=== PATIENT | male | born 1955 | race Caucasian/White ===

== ENCOUNTER 2019-08-09 16:34 | Emergency (ER) | payer OTHER ==
[2019-08-09] MEDS ORDERED: TETANUS & DIPHTHERIA TOX,ADULT 0.5 ML VIAL ONE (16:59)
--- NOTE | 2019-08-09 17:35 | RAD REPORT ---
EXAM DESCRIPTION: RAD - Hand Left 3 View - 08/09/2019 5:28 pm CLINICAL HISTORY: laceration Pain and laceration COMPARISON: No comparisons FINDINGS: Evidence of laceration is seen in the dorsal soft tissues of the hand and the thenar regio n. Mild air is seen in the subcutaneous tissues. No foreign body evident. Fracture is not seen.
[2019-08-09] MEDS ORDERED: CEFAZOLIN/SWI 1gm 1 GM/10 ML SYR ONE (18:06)
[2019-08-09] MEDS ORDERED: BUPIVACAINE 0.5% PF 10 ML VIAL ONE (18:19)
[2019-08-09] MEDS ORDERED: LIDOCAINE 1% MPF 5 ML VIAL ONE (18:19)
--- NOTE | 2019-08-09 19:18 | EDPHYS ---
Physician Documentation [facility] Name: Conner Petersen Age: 64 yrs Sex: Male : 1955 Arrival Date: 08/09/2019 Time: 16:37 Bed 28 Private MD: ED Physician Viktor Lainez HPI: 08/09 16:47 This 64 yrs old Male presents to ER via Ambulatory with complaints of pm1 Laceration To Hand. 16:47 The patient has a laceration related to: Pressure washing with water his outside pm1 furniture occurred at home, and tank washer. The laceration(s) is(are) located on the dorsum of left hand. Onset: The symptoms/episode began/occurred just prior to arrival. Associated signs and symptoms: Pertinent negatives: numbness distal to injury, suspected foreign body. The patient has not experienced similar symptoms in the past. The patient has not recently seen a physician. Patient was pressure washing his outdoor furniture. Holding the handle with his right hand and then he accidentally pressure washed his left hand. Was not wearing a glove. No solution or soap present in water. Historical: - Allergies: 16:42 No Known Allergies; hb - Home Meds: 16:42 None [Active]; hb - PMHx: 16:42 None; hb - PSHx: 16:42 None; hb - Immunization history:: Last tetanus immunization: > 10 years ago. - Coronavirus screen:: The patient has NOT traveled to [place], [place], or [place] in the past 14 days. The patient has NOT had contact with known/suspected case of Coronavirus? Proceed with normal triage procedures. - Social history:: Smoking status: Patient denies any tobacco usage or history of. - Ebola Screening: : No symptoms or risks identified at this time. ROS: 16:47 Constitutional: Negative for fever, chills, and weight loss, Cardiovascular: Negative pm1 for chest pain, palpitations, and edema, Respiratory: Negative for shortness of breath, cough, wheezing, and pleuritic chest pain, Abdomen/GI: Negative for abdominal pain, nausea, vomiting, diarrhea, and constipation. 16:47 Neuro: Negative for headache, weakness, numbness, tingling, and seizure. 16:47 MS/extremity: Positive for injury or acute deformity, of the dorsum of left hand. 16:47 Skin: Positive for laceration(s), of the dorsum of left hand. Exam: 16:47 Constitutional: This is a well developed, well nourished patient who is awake, alert, pm1 and in no acute distress. Head/Face: Normocephalic, atraumatic. Chest/axilla: Normal chest wall appearance and motion. Nontender with no deformity. No lesions are appreciated. Cardiovascular: Regular rate and rhythm with a normal S1 and S2. No gallops, murmurs, or rubs. Normal PMI, no JVD. No pulse deficits. Respiratory: Lungs have equal breath sounds bilaterally, clear to auscultation and percussion. No rales, rhonchi or wheezes noted. No increased work of breathing, no retractions or nasal flaring. Back: No spinal tenderness. No costovertebral tenderness. Full range of motion. 16:47 MS/ Extremity: Pulses equal, no cyanosis. Neurovascular intact. Full, normal range of motion. 16:47 Skin: Appearance: normal except for affected area, injury, laceration(s), the wound is approximately 2 cm(s), with a depth of 0.5 cm(s), of the dorsum of left hand. 16:47 Neuro: Orientation: is normal, Motor: is normal, moves all fours, Gait: is steady, at a normal pace, without difficulty. Vital Signs: 16:41 BP 159 / 87; Pulse 55; Resp 16; Temp 97.8; Pulse Ox 98% on R/A; Weight 72.57 kg; Height hb 5 ft. 8 in. (172.72 cm); Pain 5/10; 18:00 BP 136 / 91; Pulse 49; Resp 18; Pulse Ox 98% on R/A; wh 19:00 BP 129 / 78; Pulse 49; Resp 18; Pulse Ox 98% ; wh 16:41 Body Mass Index 24.33 (72.57 kg, 172.72 cm) hb Laceration: 19:12 Wound Repair of 2cm ( 0.8in ) subcutaneous laceration to dorsum of left hand over 2nd pm1 metacarpal. Irregularly shaped.. Distal neuro/vascular/tendon intact. Anesthesia: Local anesthetic administered with 4 mls of Lido/Marcaine. Wound prep: Extensive cleansing with betadine with hibiclenz by me, Wound irrigation with saline by me, Wound explored extensively, Copious irrigation. Skin closed with 5 4-0 Prolene using simple sutures and sterile technique. Dressed with Neosporin, 4x4's, Kerlix. Patient tolerated well. MDM: 16:43 Patient medically screened. pm1 17:34 Physician consultation: Quintin Crabtree MD was called at 17:34, was contacted at 17:34, pm1 regarding consult, patient's condition, recommends transfer for OR washout. Discussed his recommendation to Dr. Lainez. Dr. Lainez disagrees with recommendation and would like me to consult with Dr. Weeks. 17:48 Physician consultation: Trudy Weeks was called at 17:45, was contacted at 17:45, pm1 regarding consult, patient's condition, Viewed picture of laceration and 3 view x-ray. Wants me suture the laceration, give the patient Ancef here in the ER, Prescribe Keflex TID for 3 days, do not splint hand to allow movement of hand to prevent stiffening, and follow up in the [place] office on Sunday . 17:57 Data reviewed: vital signs. Data interpreted: Pulse oximetry: on room air is 98 %. pm1 Interpretation: normal. Counseling: I had a detailed discussion with the patient and/or guardian regarding: the historical points, exam findings, and any diagnostic results supporting the discharge/admit diagnosis, radiology results, the need for outpatient follow up, for definitive care, a hand specialist, With Dr. Weeks on Sunday. 08/09 16:46 Order name: Hand Left 3 View XRAY; Complete Time: 17:57 pm1 08/09 17:59 Order name: Prolene, Sutures; Complete Time: 18:14 pm1 08/09 17:59 Order name: Dressing - Wound; Complete Time: 18:14 pm1 08/09 17:59 Order name: Gloves, Sterile; Complete Time: 18:14 pm1 08/09 17:59 Order name: Setup Suture Tray; Complete Time: 18:14 pm1 Administered Medications: 17:05 Not Given (Pt have updated DPT): Tetanus-Diphtheria Toxoid Adult 0.5 ml IM once 18:14 Drug: Ancef 1 grams Route: IVPB; Site: right antecubital; 19:36 Follow up: Response: No adverse reaction; IV Status: Completed infusion 18:41 Drug: Bupivacaine (0.5 %) 10 ml {Note: Administered by Maria L TYPE COPYIST.} Volume: 10 ml; Route: Infiltration; 18:42 Drug: Lidocaine (1 %) 5 ml {Note: Administered by Maria L TYPE COPYIST.} Volume: 5 ml; Route: wh Infiltration; 19:27 Drug: traMADol 50 mg Route: PO; 19:35 Follow up: Response: No adverse reaction; Pain is decreased; RASS: Alert and Calm (0) Disposition: 08/09/19 19:17 Discharged to Home. Impression: Laceration without foreign body of left hand. - Condition is Stable. - Discharge Instructions: Laceration Care, Adult. - Prescriptions for Keflex 500 mg Oral Capsule - take 1 capsule by ORAL route every 8 hours for 3 days; 9 capsule. Tramadol 50 mg Oral Tablet - take 1 tablet by ORAL route every 8 hours As needed as needed; 12 tablet. - Medication Reconciliation Form, Thank You Letter, Antibiotic Education, Prescription Opioid Use form. - Follow up: Emergency Department; When: As needed; Reason: Worsening of condition. Follow up: Eulalio Goel MD; When: See Dr. Trudy Weeks MD on Sunday; Reason: Wound Recheck, Recheck today's complaints, Continuance of care, Re-evaluation by your physician. - Problem is new. - Symptoms have improved. Addendum: 08/11/2019 07:29 Co-signature as Attending Physician, Viktor Lainez MD I agree with the assessment and c gar plan of care. Signatures: Dispatcher [employer] [facility] Viktor Lainez MD MD cha Marinas, Patrick, NP TYPE COPYIST pm1 Caroline Moncada RN RN Michelle Yusuf Corrections: (The following items were deleted from the chart) 08/09 19:36 19:17 08/09/2019 19:17 Discharged to Home. Impression: Laceration without foreign body wh of left hand. Condition is Stable. Prescriptions for Keflex 500 mg Oral Capsule - take 1 capsule by ORAL route every 8 hours for 3 days; 9 capsule, Tramadol 50 mg Oral Tablet - take 1 tablet by ORAL route every 8 hours As needed as needed; 12 tablet. and Forms are Medication Reconciliation Form, Thank You Letter, Antibiotic Education, Prescription Opioid Use. Follow up: Emergency Department; When: As needed; Reason: Worsening of condition. Follow up: Eulalio Goel; When: See Dr. Trudy Weeks MD on Sunday; Reason: Wound Recheck, Recheck today's complaints, Continuance of care, Re-evaluation by your physician. Problem is new. Symptoms have improved. pm1
--- NOTE | 2019-08-09 19:18 | ER ---
Nurse's Notes [facility] Name: Conner Petersen Age: 64 yrs Sex: Male : 1955 Arrival Date: 08/09/2019 Time: 16:37 Bed 28 Private MD: Diagnosis: Laceration without foreign body of left hand Presentation: 08/09 16:40 Presenting complaint: Sprayed hand with venetian blind washer 30 mins [employer], small laceration hb to left hand noted. Transition of care: patient was not received from another setting of care. Complicating Factors: There are no complicating factors for this patient. Onset of symptoms. Risk Assessment: Do you want to hurt yourself or someone else? Patient reports no desire to harm self or others. Care prior to arrival: None. 16:40 Method Of Arrival: Ambulatory hb 16:40 Acuity: SOMMER 3 hb 16:47 Initial Sepsis Screen: Does the patient meet any 2 criteria? No. Patient's initial sepsis screen is negative. Does the patient have a suspected source of infection? No. Patient's initial sepsis screen is negative. Historical: - Allergies: 16:42 No Known Allergies; hb - Home Meds: 16:42 None [Active]; hb - PMHx: 16:42 None; hb - PSHx: 16:42 None; hb - Immunization history:: Last tetanus immunization: > 10 years ago. - Coronavirus screen:: The patient has NOT traveled to [place], [place], or [place] in the past 14 days. The patient has NOT had contact with known/suspected case of Coronavirus? Proceed with normal triage procedures. - Social history:: Smoking status: Patient denies any tobacco usage or history of. - Ebola Screening: : No symptoms or risks identified at this time. Screenin:46 Abuse screen: Denies threats or abuse. Denies injuries from another. Nutritional wh screening: No deficits noted. Tuberculosis screening: No symptoms or risk factors identified. Fall Risk None identified. Assessment: 16:46 General: Appears in no apparent distress. Behavior is calm, cooperative, appropriate wh for age. Pain: Complains of pain in left hand Pain does not radiate. Pain currently is 5 out of 10 on a pain scale. Neuro: Level of Consciousness is awake, alert, obeys commands. Cardiovascular: Capillary refill < 3 seconds. Respiratory: Airway is patent Respiratory effort is even, unlabored, Respiratory pattern is regular, symmetrical. GI: Abdomen is flat, non-distended. : No signs and/or symptoms were reported regarding the genitourinary system. EENT: No signs and/or symptoms were reported regarding the EENT system. Derm: Skin is intact, is healthy with good turgor, Skin is pink, warm \T\ dry. normal. Musculoskeletal: Circulation, motion, and sensation intact. Injury Description: Laceration sustained to left hand is 0.5 to 2.5 cm long, is bleeding a small amount. 18:00 Reassessment: Patient appears in no apparent distress at this time. No changes from previously documented assessment. Patient and/or family updated on plan of care and expected duration. Pain level reassessed. Patient is alert, oriented x 3, equal unlabored respirations, skin warm/dry/pink. 19:32 Reassessment: Patient appears in no apparent distress at this time. No changes from previously documented assessment. Patient and/or family updated on plan of care and expected duration. Pain level reassessed. Patient is alert, oriented x 3, equal unlabored respirations, skin warm/dry/pink. Vital Signs: 16:41 BP 159 / 87; Pulse 55; Resp 16; Temp 97.8; Pulse Ox 98% on R/A; Weight 72.57 kg; Height hb 5 ft. 8 in. (172.72 cm); Pain 5/10; 18:00 BP 136 / 91; Pulse 49; Resp 18; Pulse Ox 98% on R/A; wh 19:00 BP 129 / 78; Pulse 49; Resp 18; Pulse Ox 98% ; wh 16:41 Body Mass Index 24.33 (72.57 kg, 172.72 cm) ED Course: 16:37 Patient arrived in ED. mr 16:41 Terry Lisa, MALCOLM is PHCP. pm1 16:41 Viktor Lainez MD is Attending Physician. pm1 16:41 Triage completed. hb 16:42 Arm band placed on. hb 16:46 Michelle Cuevas is Primary Nurse. wh 16:47 Patient has correct armband on for positive identification. Bed in low position. Call light in reach. Side rails up X 1. Pulse ox on. NIBP on. 17:29 Hand Left 3 View XRAY In Process Unspecified. EDCA 18:15 Assist provider with laceration repair on left hand that was between 2.6 to 7.5 cm using sutures. Set up tray. Performed by Terry Lisa RETAIL GROCER Dressed with 4X4s, Patient tolerated well. Inserted saline lock: 20 gauge in right antecubital area, using aseptic technique. Blood collected. 19:16 Eulalio Goel MD is Referral Physician. pm1 19:35 IV discontinued, intact, bleeding controlled, No redness/swelling at site. Administered Medications: 17:05 Not Given (Pt have updated DPT): Tetanus-Diphtheria Toxoid Adult 0.5 ml IM once 18:14 Drug: Ancef 1 grams Route: IVPB; Site: right antecubital; 19:36 Follow up: Response: No adverse reaction; IV Status: Completed infusion 18:41 Drug: Bupivacaine (0.5 %) 10 ml {Note: Administered by Maria L RETAIL GROCER.} Volume: 10 ml; Route: Infiltration; 18:42 Drug: Lidocaine (1 %) 5 ml {Note: Administered by Maria L RETAIL GROCER.} Volume: 5 ml; Route: wh Infiltration; 19:27 Drug: traMADol 50 mg Route: PO; 19:35 Follow up: Response: No adverse reaction; Pain is decreased; RASS: Alert and Calm (0) Outcome: 19:17 Discharge ordered by . pm1 19:35 Discharged to home ambulatory, with family. 19:35 Condition: stable 19:35 Discharge instructions given to patient, family, Instructed on discharge instructions, follow up and referral plans. no driving heavy equipment, medication usage, safe sex practices, wound care, POC Demonstrated understanding of instructions, follow-up care, medications, wound care, POC Prescriptions given X 2. 19:36 Patient left the ED. Signatures: Dispatcher [employer] EDCA JeffreyVickie Patrick, NP RETAIL GROCER pm1 Caroline Moncada RN RN Michelle Yusuf Corrections: (The following items were deleted from the chart) 16:45 16:40 Acuity: SOMMER 4 hb hb
[2019-08-09] MEDS ORDERED: TRAMADOL HCL 50 MG TAB ONE (19:27)
[2019-08-09 20:08] VITALS: TEMP 97.8; O2SAT 98
[2019-08-09 20:10] VITALS: BP 129/78
== END 2019-08-09 19:36 | disposition home or self-care (01) ==
LOC: ER 16:34
PROC: 0JQK0ZZ Repair Left Hand Subcutaneous Tissue and Fascia, Open Approach (ICD-10-PCS; principal; 2019-08-09)
DX: S61.412A Laceration without foreign body of left hand, initial encounter (principal); W31.89XA Contact with other specified machinery, initial encounter; Y93.89 Activity, other specified; Y92.89 Other specified places as the place of occurrence of the external cause; Z23 Encounter for immunization
CPT/HCPCS: 96365; 73130; 99284; 12001; J0690; 90714